=== PATIENT | male | born 1960 | race Caucasian/White ===

== ENCOUNTER 2017-06-24 06:38 | Outpatient (CLI) | payer OTHER | END 2017-06-24 06:39 | disposition home or self-care (01) | LOC: SCSLAB 06:38 | PROVIDERS: ATTEND Family Medicine | DX: Z00.00 Encounter for general adult medical examination without abnormal findings (principal); Z12.5 Encounter for screening for malignant neoplasm of prostate; E83.52 Hypercalcemia ==

== ENCOUNTER 2017-08-09 07:17 | Outpatient (CLI) | payer OTHER ==
--- NOTE | 2017-08-09 12:57 | NM ---
NUCLEAR MEDICINE PARATHYROID SCAN: 08/09/2017 HISTORY: Hypercalcemia. RADIOPHARMACEUTICAL: Technetium 99m sestamibi, 25.2 millicuries, IV. VIEWS OBTAINED: Anterior and oblique with immediate and one hour delayed images obtained. SPECT imaging was also per formed. FINDINGS: There is normal uptake within the thyroid gland on the immediate images, which is symmetric, between each lobe of the thyroid gland. However, there is a focal area of more intense uptake of radiotracer seen within the junction of the mid and superior pole, right lobe of the thyroid gland, and this are a of more intense focal activity persists on the one hour delayed images. SPECT imaging also demonst rates a focal area of intense activity within the right lobe of the thyroid gland, in this location. This area also persists on the two hour delayed images. IMPRESSION: Focal area of persistent increased activity within the right lobe of the thyroid gland, which is seen near the region of the superior pole, right lobe of the thyroid gland and may be related to a parath yroid adenoma. POS: SUGEY
== END 2017-08-09 07:18 | disposition home or self-care (01) ==
LOC: NM 07:17
PROVIDERS: ATTEND Otolaryngology Plastic Surgery within the Head & Neck
DX: E83.52 Hypercalcemia (principal)
CPT/HCPCS: 78072; A9500

== ENCOUNTER 2017-12-01 12:56 | Day surgery (SDC) | payer OTHER ==
[2017-11-30 10:47] VITALS: BMI 36.9
[2017-12-01] MEDS ORDERED: Ondansetron HCl/PF 4 MG/2 ML Vial ONE ×2 (13:47→16:50)
[2017-12-01] MEDS ORDERED: Lidocaine 1% PF 5 ML VIAL ONE (13:47)
[2017-12-01] MEDS ORDERED: ePHEDrine/0.9% NaCl/PF SYRINGE 50 mg/10 ml ONE (13:47)
[2017-12-01] MEDS ORDERED: Dexamethasone 20 MG/5 ML VIAL ONE (13:47)
[2017-12-01] MEDS ORDERED: Propofol 200 MG/20 ML VIAL ONE (13:47)
[2017-12-01] MEDS ORDERED: Succinylcholine Chloride 20 MG/ML 10 ml SYRINGE FS ONE (13:47)
[2017-12-01] MEDS ORDERED: Fentanyl 250 MCG/5 ML VIAL ONE (16:50)
[2017-12-01] MEDS ORDERED: Lidocaine 1% w/Epinephrine 1:200K 30 ML VIAL ONE (16:52)
--- NOTE | 2017-12-01 20:43 | OP ---
PREOPERATIVE DIAGNOSES: 1. Hyperparathyroidism. 2. Hypercalcemia. POSTOPERATIVE DIAGNOSES: 1. Hyperparathyroidism. 2. Hypercalcemia. PROCEDURES: Right parathyroidectomy. SURGEON: Dr. Jorge Madison. ESTIMATED BLOOD LOSS: Less than 5 mL COMPLICATIONS: None. ANESTHESIA: GETA with laryngeal nerve monitoring. PROCEDURE IN DETAIL: The patient was taken to the operating room, and placed supine on the operating table. General endotracheal anesthesia was obtained by the Anesthesia staff. Using the direct jeremy ngoscope. The tube was secured with the laryngeal electrodes between the true vocal cords then secur ed to the upper lip. The shoulder roll was placed. Patient was prepped and draped in standard surgi ambrosio fashion. A 6 mL of 1% lidocaine 1:100,000 epinephrine was injected into the anticipated incision line in the right lower neck. Following this, a 4 cm incision was made through skin and subcutaneou s tissue. Subplatysmal flaps were elevated superiorly and inferiorly. The strap muscles were separa michele on the right lateral side and the thyroid gland was encountered. The thyroid gland was then retr acted medially and a large nearly 2 cm parathyroid adenoma was identified and was resected and sent f or frozen section analysis, which confirmed parathyroid tissue. Following this, the hemostasis was o btained, a small piece of fibrillar was placed in the area of the parathyroid gland and the wound was then closed using Monocryl stitches for the subcuticular for the platysmal layer and subcuticular la michelle and Dermabond for the skin. The patient tolerated the procedure well.
== END 2017-12-01 19:34 | disposition home or self-care (01) ==
LOC: SDC 12:56
PROVIDERS: ATTEND Otolaryngology Plastic Surgery within the Head & Neck
PROC: 0GTR0ZZ Resection of Parathyroid Gland, Open Approach (ICD-10-PCS; principal; 2017-12-01)
DX: D35.1 Benign neoplasm of parathyroid gland (principal); E21.3 Hyperparathyroidism, unspecified; G47.33 Obstructive sleep apnea (adult) (pediatric); E78.5 Hyperlipidemia, unspecified; I10 Essential (primary) hypertension; R73.01 Impaired fasting glucose; Z79.82 Long term (current) use of aspirin; Z79.899 Other long term (current) drug therapy
CPT/HCPCS: 88305; 88331; 88334; 93005; 93010; J0131; J1100; J2001; J2405; J2704; J3010

== ENCOUNTER 2019-01-26 06:38 | Outpatient (CLI) | payer OTHER ==
[2019-01-26 07:03] LABS: #Basophils 0.1 thou/uL (0.0-0.2); #Eosinphils 0.1 thou/uL (0.0-0.7); #Lymphocytes 1.6 thou/uL (1.20-3.40); #Monocytes 0.6 thou/uL (0.11-0.59); #Neutrophils 4.1 thou/uL (1.40-6.50); %Basophils 1.7 % (0.0-1.0); %Eosinophils 1.3 % (0.0-10.0); %Lymphocytes 24.6 % (21.0-51.0); %Monocytes 9.5 % (0.0-10.0); Mean Corpuscular HGB CONC 35.6 g/dL (32.0-36.0); Mean Corpuscular Hemoglobin 32.8 pg (27.0-31.0); Mean Corpuscular Volume 92.2 fL (78.0-98.0); Mean Platelet Volume 8.3 fL (7.4-10.4); Platelet Count 216 thou/uL (130-400); RBC Distribution Width 12.3 % (11.5-14.5); Red Blood Cell (RBC) Count 4.26 mill/uL (4.70-6.10); White Blood Cell (WBC) Count 6.4 thou/uL (4.8-10.8)
[2019-01-26 07:12] LABS: Bilirubin Negative (Negative); Blood, Urine Trace (Negative); Clarity Hazy (Clear); Glucose, Urine (Dipstick) Negative (Negative); Leukocyte Negative (Negative); Nitrite Negative (Negative); Protein, Urine (Dipstick) 30 mg/dL (Neg-Trace); Urobilinogen 0.2 mg/dL (0.2-1.0)
[2019-01-26 07:19] LABS: Bacteria/HPF Rare-Few HPF (None Seen); RBC/HPF 0-3 HPF (0-3); Squamous Epithelial None Seen HPF (0-3); WBC/HPF None Seen HPF (0-3)
[2019-01-26 07:22] LABS: ALT (SGPT) 25 U/L (8-55); AST (SGOT) 21 U/L (5-34); Albumin 4.4 g/dL (3.5-5.0); Alkaline Phosphatase 74 U/L (40-150); Anion Gap 13 mmol/L (10-20); BUN (Urea Nitrogen) 27 mg/dL (8.4-25.7); Bilirubin, Total 0.7 mg/dL (0.2-1.2); Calc. Creatinine Clearance 0 mL/min (70-130); Calcium 9.8 mg/dL (7.8-10.44); Carbon Dioxide 23 mmol/L (22-29); Cardiac Risk 3.8 (Less than 4.5); Chloride 107 mmol/L (98-107); Cholesterol 159 mg/dl (< 200 Desired); Estimated GFR-MDRD 54; Glucose 104 mg/dL (70-105); HDL Cholesterol 42 mg/dL (>60 Neg Risk); LDL Cholesterol, Calculated 84 mg/dL; Protein, Total 7.4 g/dL (6.0-8.3); Sodium 139 mmol/L (136-145); Triglycerides 164 mg/dL (Less than 150)
[2019-01-26 10:23] LABS: Hemoglobin A1c 5.1 % (4.0-6.0)
== END 2019-01-26 06:39 ==
LOC: SCSLAB 06:38
PROVIDERS: ATTEND Family Medicine
DX: Z00.00 Encounter for general adult medical examination without abnormal findings (principal); Z12.5 Encounter for screening for malignant neoplasm of prostate; R73.09 Other abnormal glucose; E21.3 Hyperparathyroidism, unspecified
CPT/HCPCS: 36415; 80053; 80061; 81001; 83036; 83970; 85025; G0103

== ENCOUNTER 2019-08-30 14:40 | Outpatient (CLI) | payer OTHER ==
[2019-08-30 16:58] LABS: #Basophils 0.1 thou/uL (0.0-0.2); #Eosinphils 0.1 thou/uL (0.0-0.7); #Lymphocytes 2.5 thou/uL (1.20-3.40); #Monocytes 0.8 thou/uL (0.11-0.59); #Neutrophils 6.1 thou/uL (1.40-6.50); %Basophils 0.9 % (0.0-1.0); %Eosinophils 0.8 % (0.0-10.0); %Lymphocytes 26.3 % (21.0-51.0); %Monocytes 8.4 % (0.0-10.0); %Neutrophils 63.6 % (42.0-75.0); Hemoglobin 14.3 g/dL (14.0-18.0); Mean Corpuscular HGB CONC 35.3 g/dL (32.0-36.0); Mean Corpuscular Hemoglobin 33.7 pg (27.0-31.0); Mean Corpuscular Volume 95.4 fL (78.0-98.0); Mean Platelet Volume 8.3 fL (7.4-10.4); Platelet Count 222 thou/uL (130-400); RBC Distribution Width 12.3 % (11.5-14.5); Red Blood Cell (RBC) Count 4.24 mill/uL (4.70-6.10); White Blood Cell (WBC) Count 9.6 thou/uL (4.8-10.8)
[2019-08-30 17:16] LABS: Anion Gap 15 mmol/L (10-20); BUN (Urea Nitrogen) 30 mg/dL (8.4-25.7); Calc. Creatinine Clearance 0 mL/min (70-130); Calcium 9.9 mg/dL (7.8-10.44); Carbon Dioxide 25 mmol/L (22-29); Chloride 105 mmol/L (98-107); Estimated GFR-MDRD 49; Glucose 86 mg/dL (70-105); Potassium 4.1 mmol/L (3.5-5.1); Sodium 141 mmol/L (136-145)
== END 2019-08-30 14:41 | disposition home or self-care (01) ==
LOC: LABBT 14:40
PROVIDERS: ATTEND Surgery
DX: Z01.818 Encounter for other preprocedural examination (principal); K43.9 Ventral hernia without obstruction or gangrene
CPT/HCPCS: 80048; 85025; 93005; 93010

== ENCOUNTER 2019-08-31 05:50 | Day surgery (SDC) | payer OTHER ==
[2019-08-31] MEDS ORDERED: Bupivacaine 0.25% HCL 30 ML VIAL ONE (06:55)
[2019-08-31] MEDS ORDERED: SUGAMMADEX SODIUM 500 MG/5 ML VIAL ONE (07:15)
[2019-08-31] MEDS ORDERED: HYDROmorphone 0.5 MG/0.5 ML SYRINGE ONE (07:15)
[2019-08-31] MEDS ORDERED: Lidocaine 1% PF 5 ML VIAL ONE (13:18)
[2019-08-31] MEDS ORDERED: Ondansetron PF 4 MG/2 ML Vial ONE (13:18)
[2019-08-31] MEDS ORDERED: PROPOFOL 200 MG/20 ML VIAL ONE (13:18)
[2019-08-31] MEDS ORDERED: Rocuronium Bromide 10 MG/ML (10ML VIAL) ONE (13:18)
[2019-08-31] MEDS ORDERED: Dexamethasone 20 MG/5 ML VIAL ONE (13:18)
--- NOTE | 2019-08-31 17:18 | OP ---
DATE OF PROCEDURE: 08/31/2019 PREOPERATIVE DIAGNOSIS: Ventral hernia. POSTOPERATIVE DIAGNOSIS: Ventral hernia. PROCEDURE PERFORMED: Da Shant laparoscopic ventral hernia repair with mesh, [address] ANESTHESIA: General. ESTIMATED BLOOD LOSS: Minimal. COMPLICATIONS: None. SPECIMEN: None. FINDINGS: There was umbilical hernia and epigastric hernia. DESCRIPTION OF PROCEDURE: The patient was taken to the operating room and laid supine on the operating room table. After general anesthetic was obtained, the abdomen was prepped and draped in a sterile fashion. Left subcostal 5 mm Optiview trocar was placed and high-flow pneumoperitoneum was obtained. Left lateral and right lateral 8-mm robot trocars were placed under direct visualization. Robot was brought in and docked to the ports. Surgeon gone to the console. The posterior peritoneum was taken down, exposing an umbilical defect as well as a defect in the upper midline abdomen. These were closed primarily using a running #1 V-Loc suture. An 8-cm [place] of Ventralex ST mesh was cut, labeled, and placed in the abdominal cavity. The exposed mesh part was placed up against the posterior fascia and sewn to the posterior fascia circumferentially using a 2-0 V-Loc. All needles were removed from the abdomen and accounted for. All port sites were infiltrated using local anesthetic. All ports were removed under direct visualization and pneumoperitoneum was let down. A 4-0 Monocryl and Dermabond were used to close all the skin incisions. The patient was en route to Recovery in stable condition. All instrument counts, needle counts, and lap counts were correct. Job ID: [id number]
== END 2019-08-31 12:22 | disposition home or self-care (01) ==
LOC: SDC 05:50
PROVIDERS: ATTEND Surgery
PROC: 0WUF4JZ Supplement Abdominal Wall with Synthetic Substitute, Percutaneous Endoscopic Approach (ICD-10-PCS; principal; 2019-08-31)
DX: K43.9 Ventral hernia without obstruction or gangrene (principal); K42.9 Umbilical hernia without obstruction or gangrene; E89.2 Postprocedural hypoparathyroidism; Z79.899 Other long term (current) drug therapy
CPT/HCPCS: C1781; J0131; J0690; J1100; J1170; J2001; J2405; J2704; S0020

== ENCOUNTER 2020-04-22 06:42 | Emergency (ER) | payer OTHER ==
[2020-04-22 07:15] LABS: #Basophils 0.1 thou/uL (0.0-0.2); #Eosinphils 0.1 thou/uL (0.0-0.7); #Lymphocytes 1.6 thou/uL (1.20-3.40); #Monocytes 0.5 thou/uL (0.11-0.59); #Neutrophils 5.7 thou/uL (1.40-6.50); %Basophils 1.2 % (0.0-1.0); %Eosinophils 1.1 % (0.0-10.0); %Lymphocytes 19.4 % (21.0-51.0); %Monocytes 6.8 % (0.0-10.0); %Neutrophils 71.5 % (42.0-75.0); Hemoglobin 14.5 g/dL (14.0-18.0); Mean Corpuscular HGB CONC 34.1 g/dL (32.0-36.0); Mean Corpuscular Hemoglobin 32.7 pg (27.0-31.0); Mean Platelet Volume 8.2 fL (7.4-10.4); Platelet Count 231 thou/uL (130-400); RBC Distribution Width 12.3 % (11.5-14.5); Red Blood Cell (RBC) Count 4.42 mill/uL (4.70-6.10)
[2020-04-22 07:41] LABS: ALT (SGPT) 32 U/L (8-55); AST (SGOT) 27 U/L (5-34); Albumin 4.4 g/dL (3.5-5.0); Alkaline Phosphatase 86 U/L (40-110); Anion Gap 13 mmol/L (10-20); BUN (Urea Nitrogen) 28 mg/dL (8.4-25.7); Bilirubin, Total 0.7 mg/dL (0.2-1.2); Calc. Creatinine Clearance 0 mL/min (70-130); Calcium 9.3 mg/dL (7.8-10.44); Carbon Dioxide 24 mmol/L (22-29); Chloride 103 mmol/L (98-107); Estimated GFR-MDRD 55; Globulin 2.8 g/dL (2.4-3.5); Glucose 116 mg/dL (70-105); Potassium 4.1 mmol/L (3.5-5.1); Protein, Total 7.2 g/dL (6.0-8.3); Sodium 136 mmol/L (136-145)
--- NOTE | 2020-04-22 07:52 | RAD ---
RADIOGRAPH CHEST 1 VIEW: DATE: 04/22/2020 HISTORY: 59-year-old male with chest pain FINDINGS: There are no airspace densities, pulmonary edema, pneumothorax, or cardiomegaly. The lateral costophr enic angles are sharp. IMPRESSION: No acute cardiopulmonary findings.
[2020-04-22] MEDS ORDERED: Acetaminophen 500 MG TAB ONE (08:00)
[2020-04-22] MEDS ORDERED: Aspirin Chewable 81 MG TAB ONE (08:00)
[2020-04-22] MEDS ORDERED: Nitroglycerin 0.4 MG TAB 1 EACH ONE (08:51)
[2020-04-22 10:48] LABS: Troponin I 0.011 ng/mL (< 0.028)
[2020-04-23 15:03] LABS: SARS-CoV-2 MS2 Positive; SARS-CoV-2 N Gene Negative; SARS-CoV-2 S Gene Negative; SARS-CoV-2 by NAA Not Detected (NotDetected); SARS-CoV-2 orf1ab Negative
== END 2020-04-22 11:27 | disposition home or self-care (01) ==
LOC: ERS 06:42
DX: R07.89 Other chest pain (principal); Z20.828 Contact with and (suspected) exposure to other viral communicable diseases; I10 Essential (primary) hypertension; E78.5 Hyperlipidemia, unspecified; Z79.899 Other long term (current) drug therapy
CPT/HCPCS: 71045; 80053; 83880; 84484; 85025; 87635; 93005; U0003